=== PATIENT | female | born 1970 | race African-American/Black ===

== ENCOUNTER 2017-07-02 23:31 | Emergency (ER) | payer SELFPAY ==
[~2017-07-02] VITALS: Ht 167.6 cm; Wt 52.0 kg
[2017-07-02 23:34] VITALS: BP 120/63; PULSE 82; RESP 16; TEMP 98; O2SAT 100
[2017-07-03] MEDS ORDERED: SODIUM CHLORIDE 0.9% FLUSH 10 ML FLUSH IVF PRN (00:15)
[2017-07-03 00:25] VITALS: RESP 24; O2SAT 100
[2017-07-03 00:34] LABS: BASOPHIL % 1.1 % (0.0-2.0); EOSINOPHIL # 0.1 TH/MM3 (0-0.4); EOSINOPHIL % 3.8 % (0.0-4.0); HEMATOCRIT 24.7 % (35.0-46.0); HEMO FLAGS DIFF FINAL; LYMPH % 36.2 % (9.0-44.0); LYMPHOCYTE # 1.4 TH/MM3 (1.0-4.8); MEAN CELL VOLUME 59.8 FL (80.0-100.0); MEAN CORPUSCULAR HEMOGLOBIN 18.4 PG (27.0-34.0); MEAN CORPUSCULAR HGB CONC 30.8 % (32.0-36.0); MONO % 8.1 % (0.0-8.0); NEUT % 50.8 % (16.0-70.0); PLATELET COUNT 330 TH/MM3 (150-450); RED BLOOD COUNT 4.13 MIL/MM3 (4.00-5.30); RED CELL DISTRIBUTION WIDTH 20.6 % (11.6-17.2); WHITE BLOOD COUNT 3.9 TH/MM3 (4.0-11.0)
--- NOTE | 2017-07-03 00:47 | PD ---
HPI . Dyspnea Chief Complaint: Respiratory Symptoms Time Seen by Provider: 00:06 Travel History International Travel<30 days: No Contact w/Intl Traveler<30days: No Traveled to known affect area: No History of Present Illness HPI Patient presents with chief complaint dyspnea. Onset was today. Patient also reports profound fatigue and somnolence. Onset was also today. The patient has not noted any exacerbating or relieving factors. She reports that the dyspnea is severe. The patient reports previous anemia requiring blood transfusions. She states that her anemia was caused by placenta previa. She states that she has not recently been sexually active. She reports no unusual vaginal or rectal bleeding. This patient is visiting from [place]. [facility] Past Medical History Genitourinary: Yes (PREVIOUS KIDNEY BLEEDING.) Tetanus Vaccination: < 5 Years Influenza Vaccination: No ?: Not : 7 Para: 7 Past Surgical History Section: Yes Social History Alcohol Use: Yes ([facility]) Tobacco Use: Yes (4 CIG PER DAY) Substance Use: No Allergies-Medications (Allergen,Severity, Reaction): Coded Allergies: No Known Allergies (Unverified , 07/02/17) Reported Meds & Prescriptions Reported Meds & Active Scripts Active Ferrous Sulfate 325 Mg (65 Mg Iron) Tablet 325 Mg PO BIDPC Review of Systems Except as stated in HPI: all other systems reviewed are Neg General / Constitutional: Positive: Other (fatigue and somnolence), No: Fever , Chills Cardiovascular: No: Chest Pain or Discomfort Respiratory: Positive: Shortness of Breath Gastrointestinal: No: Nausea, Vomiting, Diarrhea, Hematemesis, Hematochezia Genitourinary: No: Menorrhagia, Metorrhagia, Vaginal Bleeding Physical Exam Narrative GENERAL: The patient is awake and alert. She does appear dyspneic. SKIN: Warm and dry. Pale. HEAD: Atraumatic. Normocephalic. EYES: Pupils equal and round. ENT: No nasal bleeding or discharge. Mucous membranes pink and moist. NECK: Trachea midline. Neck supple. CARDIOVASCULAR: Regular rate and rhythm. Heart sounds normal. RESPIRATORY: No accessory muscle use. Lungs are clear with full air movement throughout. GASTROINTESTINAL: Abdomen soft, non-tender, nondistended. MUSCULOSKELETAL: No obvious deformities. No edema. NEUROLOGICAL: Awake and alert. No obvious cranial nerve deficits. Motor grossly within normal limits. Normal speech. PSYCHIATRIC: Appropriate mood and affect; insight and judgment normal. Data Data Last Documented VS Vital Signs Date Time Temp Pulse Resp B/P Pulse Ox O2 Delivery O2 Flow Rate FiO2 07/03/17 00:25 24 100 Room Air 07/02/17 23:34 98.0 82 120/63 Orders Complete Blood Count With Diff (07/03/17 00:06) Comprehensive Metabolic Panel (07/03/17 00:06) Iv Access Insert/Monitor (07/03/17 00:06) Electrocardiogram (07/03/17 00:06) Ecg Monitoring (07/03/17 00:06) Oximetry (07/03/17 00:06) Oxygen Administration (07/03/17 00:06) Sodium Chloride 0.9% Flush (Ns Flush) (07/03/17 00:15) Chest, Pa & Lat (07/03/17 01:18) Labs Laboratory Tests Test 07/03/17 00:15 White Blood Count 3.9 TH/MM3 Red Blood Count 4.13 MIL/MM3 Hemoglobin 7.6 GM/DL Hematocrit 24.7 % Mean Corpuscular Volume 59.8 FL Mean Corpuscular Hemoglobin 18.4 PG Mean Corpuscular Hemoglobin 30.8 % Concent Red Cell Distribution Width 20.6 % Platelet Count 330 TH/MM3 Mean Platelet Volume 8.3 FL Neutrophils (%) (Auto) 50.8 % Lymphocytes (%) (Auto) 36.2 % Monocytes (%) (Auto) 8.1 % Eosinophils (%) (Auto) 3.8 % Basophils (%) (Auto) 1.1 % Neutrophils # (Auto) 2.0 TH/MM3 Lymphocytes # (Auto) 1.4 TH/MM3 Monocytes # (Auto) 0.3 TH/MM3 Eosinophils # (Auto) 0.1 TH/MM3 Basophils # (Auto) 0.0 TH/MM3 CBC Comment DIFF FINAL Differential Comment Sodium Level 143 MEQ/L Potassium Level 3.9 MEQ/L Chloride Level 109 MEQ/L Carbon Dioxide Level 25.5 MEQ/L Anion Gap 9 MEQ/L Blood Urea Nitrogen 11 MG/DL Creatinine 0.96 MG/DL Estimat Glomerular Filtration 75 ML/MIN Rate Random Glucose 109 MG/DL Calcium Level 8.3 MG/DL Total Bilirubin 0.3 MG/DL Aspartate Amino Transf 43 U/L (AST/SGOT) Alanine Aminotransferase 18 U/L (ALT/SGPT) Alkaline Phosphatase 146 U/L Total Protein 7.2 GM/DL Albumin 3.3 GM/DL MDM Medical Decision Making Medical Screen Exam Complete: Yes Emergency Medical Condition: Yes Medical Record Reviewed: Yes (no old records found.) Interpretation(s) EKG shows a sinus rhythm with some nonspecific STT wave findings. No old EKGs for comparison. Differential Diagnosis Differential diagnosis of dyspnea includes but is not limited to congestive heart failure, pneumonia, wheezing, pneumothorax, pulmonary embolism Narrative Course This patient presents with the chief complaint of dyspnea. She reports no history other than anemia when she had placenta previa. She has a normal lung exam. The most likely etiology of her dyspnea is anemia. CBC & BMP Diagram 07/03/17 00:15 CXR>>No acute disease. The chest x-ray was independently viewed by me. This patient is hemodynamically stable. She does not appear to be having any respiratory distress. I have prescribed iron and will have her follow-up with her primary care physician in [place] when she returns home. [facility] Point of Care Internal Pos. & Neg. Controls: Passed Fecal Specimen Occult Blood: Negative Diagnosis Primary Impression: Dyspnea Qualified Code: R06.00 - Dyspnea, unspecified type Additional Impression: Anemia Qualified Code: D64.9 - Anemia, unspecified type Patient Instructions: Anemia (DC), General Instructions Additional Instructions: Take the iron as directed. Follow-up with your primary care physician when you return to [place] for further evaluation. Med/Other Pt SpecificInfo: Prescription(s) given Scripts Ferrous Sulfate 325 Mg (65 Mg Iron) [id number] Mg PO BIDPC #60 TAB Ref 0 Prov:Ana Means MD 07/03/17 Disposition: 01 DISCHARGE HOME Condition: Stable Ana Means MD Jul 03, 2017 00:47
[2017-07-03 01:07] LABS: ALKALINE PHOSPHATASE 146 U/L (45-117); ALT (GPT) 18 U/L (10-53); TOTAL BILIRUBIN ADULT 0.3 MG/DL (0.2-1.0)
[2017-07-03 01:13] LABS: ANION GAP 9 MEQ/L (5-15); AST (GOT) 43 U/L (15-37); BICARBONATE 25.5 MEQ/L (21.0-32.0); BLOOD UREA NITROGEN 11 MG/DL (7-18); CHLORIDE 109 MEQ/L (98-107); GLOMERULAR FILTRATION RATE 75 ML/MIN (>89); POTASSIUM 3.9 MEQ/L (3.5-5.1); SODIUM (NA) 143 MEQ/L (136-145)
[2017-07-03] MEDS ORDERED: FERR325T8 PO ×2 (01:54→02:41)
--- NOTE | 2017-07-03 02:15 | RADRPT ---
EXAM DATE/TIME: 07/03/2017 01:40 [facility] COMPARISON: No previous studies available for comparison. INDICATIONS : Bilateral lower extremity swelling. MEDICAL HISTORY : None. SURGICAL HISTORY : None. ENCOUNTER: Initial ACUITY: 1 day PAIN SCORE: 0/10 LOCATION: Bilateral chest FINDINGS: PA and lateral views of the chest demonstrate the lungs to be symmetrically aerated without evidence of mass, infiltrate or effusion. The cardiomediastinal contours are unremarkable. Osseous structure s are intact. CONCLUSION: No acute disease. Bong Don MD on July 03, 2017 at 2:13 Board Certified Radiologist. This report was verified electronically.
[2017-07-03 02:51] VITALS: BP 94/53; PULSE 83; RESP 18; O2SAT 100
--- NOTE | 2017-07-03 16:02 | EKG ---
Date Performed: 07/03/2017 Time Performed: 00:40:47 PTAGE: 47 years EKG: SINUS ARRHYTHMIA MINOR NONSPECIFIC T WAVE CHANGE ANTERIORLY BORDERLINE ECG NO PREVIOUS TRACING DOCTOR: Luis Enrique Pineda Interpretating Date/Time 07/03/2017 16:00:44
== END 2017-07-03 03:05 | disposition home or self-care (01) ==
LOC: NEPC 23:31
DX: D64.9 Anemia, unspecified (principal); R06.00 Dyspnea, unspecified; R53.83 Other fatigue; F17.290 Nicotine dependence, other tobacco product, uncomplicated; F10.10 Alcohol abuse, uncomplicated
CPT/HCPCS: 71020; 80053; 85025; 93005; 99285